=== PATIENT | male | born 1985 | race Caucasian/White ===

== ENCOUNTER 2023-12-16 07:56 | Outpatient (CLI) | payer OTHER, SELFPAY ==
--- NOTE | ~2023-12-16 | US_ITS ---
EXAMINATION: US soft tissue groin LT DATE: 12/16/2023 08:26 INDICATION: Left lower quadrant abdominal tenderness. TECHNIQUE: Multiple grayscale and Doppler ultrasound images of the left groin were obtained. COMPARISON: None FINDINGS: There is an 8 mm subcutaneous mass in left groin in the area of a scar from varicose vein s urgery several years ago. There is no hernia or lymphadenopathy. IMPRESSION: 1. 8 mm subcutaneous mass in left groin in an area of prior surgery, likely scarring. Reviewed, dictated and finalized at location A. IMPRESSION: 1. 8 mm subcutaneous mass in left groin in an area of prior surgery, likely sca rring.
--- NOTE | ~2023-12-16 | US_ITS ---
EXAMINATION: US scrotum doppler DATE: 12/16/2023 08:26 INDICATION: Left testicular pain. TECHNIQUE: Grayscale and Doppler ultrasound images of the testes were obtained. COMPARISON: None. FINDINGS: The right testis measures 3.7 x 2.1 x 2.1 cm. The left testis measures 3.5 x 2.3 x 2.1 cm. There is normal vascular flow to both testes. The right epididymis is normal with normal vascular austen w. The left epididymis is normal with normal vascular flow. There is no varicocele or hydrocele. IMPRESSION: 1. Normal testes. Reviewed, dictated and finalized at location A. IMPRESSION: 1. Normal testes.
== END 2023-12-16 07:57 ==
PROVIDERS: PCP Nurse Practitioner Family; Visit Provider Nurse Practitioner Family
DX: R19.09 Other intra-abdominal and pelvic swelling, mass and lump (principal); N50.812 Left testicular pain
CPT/HCPCS: 76870; 76882; 93976